=== PATIENT | male | born 1970 | race Asian ===

== ENCOUNTER 2025-10-08 09:35 | Outpatient (AMB) | payer BC, SELFPAY ==
--- OUTSIDE RECORDS SUMMARY | 2024-06-21 10:30 | XMS_ITS ---
Author Organization [facility] [place] Address [address] [facility] [address] [place] [address] Care Team Providers Care Curriculum Supervisor Name Role Phone Migration, Provider Unavailable Unavailable REASON FOR VISIT Follow-up Appt Encounters Encounter Location Date Provider Diagnosis [address] [address] 06/21/2024 Provider Migration Plan Of Treatment No Information Progress Notes * VIKY NAVARRETE:1970 ([age] yo M)Acc No.[id number]:06/21/2024 Progress Notes Patient: Misty Lancaster VIKY Moreno Provider: Esthela Solares :1970 A ge:54 Y S ex:Male Date:06/21/2024 Address:[address] [place], [place] [phone] Subjective: * Chief Complaints: * F ollow-up Appt * Ocular Surgical History: Objective: Vision Examination: * Electronic signature of Prov ider Migration on 10/08/2025 at 11:17 AM EST Sign off status: Pending * Provider: Esthela taylor Migration Date: 0 06/21/2024 Generated for Berny alexander/Steve/eTransmitting on: 1 12/09/2024 11:17 AM EST
--- OUTSIDE RECORDS SUMMARY | 2024-08-30 05:45 | XMS_ITS ---
Author Organization [facility] [place] Address [address] [facility] [address] [place] [address] Care Team Providers Care Chief Pharmacist Name Role Phone Migration, Provider Unavailable Unavailable REASON FOR VISIT Follow-up Appt Encounters Encounter Location Date Provider Diagnosis [address] [address] 08/30/2024 Provider Migration Plan Of Treatment No Information Progress Notes * VIKY NAVARRETE:1970 ([age] yo M)Acc No.[id number]:08/30/2024 Progress Notes Patient: Misty Lancaster VIKY Moreno Provider: Esthela Solares :1970 A ge:54 Y S ex:Male Date:08/30/2024 Address:[address] [place], [place] [id number] Subjective: * Chief Complaints: * F ollow-up Appt * Ocular Surgical History: Objective: Vision Examination: * Electronic signature of Prov ider Migration on 10/08/2025 at 11:17 AM EST Sign off status: Pending * Provider: Esthela taylor Migration Date: 10/30/2023 Generated for Berny alexander/Steve/eTransmitting on: 12/09/2024 11:17 AM EST
--- OUTSIDE RECORDS SUMMARY | 2025-01-07 10:30 | XMS_ITS ---
Author Organization [facility] [place] Address [address] [facility] [address] [place] [address] Care Team Providers Care Pump House Technician Name Role Phone Migration, Provider Unavailable Unavailable REASON FOR VISIT Follow-up Appt Encounters Encounter Location Date Provider Diagnosis [address] [address] 01/07/2025 Provider Migration Plan Of Treatment No Information Progress Notes * VIKY NAVARRETE:1970 ([age] yo M)Acc No.[id number]:01/07/2025 Progress Notes Patient: Misty Lancaster VIKY Moreno Provider: Esthela Solares :1970 A ge:54 Y S ex:Male Date:01/07/2025 Address:[address] [place], [place] [phone] Subjective: * Chief Complaints: * F ollow-up Appt * Ocular Surgical History: Objective: Vision Examination: * Electronic signature of Prov ider Migration on 10/08/2025 at 11:17 AM EST Sign off status: Pending * Provider: Esthela taylor Migration Date: 0 01/07/2025 Generated for Berny alexander/Steve/eTricharsmitting on: 1 12/09/2024 11:17 AM EST
--- OUTSIDE RECORDS SUMMARY | 2025-01-07 10:45 | XMS_ITS ---
Author Organization [facility] [place] Address [address] [facility] [address] [place] [address] Care Team Providers Care Utility Agent Name Role Phone Jose Moody Unavailable [phone] REASON FOR VISIT Follow-up Appt Encounters Encounter Location Date Provider Diagnosis [facility], [address] [address] 01/07/2025 Jose Moody Plan Of Treatment No Information Progress Notes * VIKY NAVARRETE:1970 ([age] yo M)Acc No.[id number]:01/07/2025 Progress Notes Patient: VIKY Loving Provider: Monika SHIN :1970 A ge:54 Y S ex:Male Date:01/07/2025 Address:[address] [place], [place] [phone] Subjective: * Chief Complaints: * F ollow-up Appt * Ocular Surgical History: Objective: Vision Examination: * Electronic signature of Larry Moody PA-C on 10/08/2025 at 11:17 AM EST Sign off status: Pending * Provider: Monika SHIN Date: 0 01/07/2025 Generated for Berny alexander/Steve/Dee Dee on: 1 12/09/2024 11:17 AM EST
--- OUTSIDE RECORDS SUMMARY | 2025-02-22 10:30 | XMS_ITS ---
Author Organization [facility] [place] Address [address] [facility] [address] [place] [address] Care Team Providers Care Block Placer Name Role Phone Jose Moody Unavailable [phone] REASON FOR VISIT Follow-up Appt Encounters Encounter Location Date Provider Diagnosis [address] [address] 02/22/2025 Jose Moody Plan Of Treatment No Information Progress Notes * VIKY NAVARRETE:1970 ([age] yo M)Acc No.[id number]:02/22/2025 Progress Notes Patient: VIKY Loving Provider: Monika SHIN :1970 A ge:55 Y S ex:Male Date:02/22/2025 Address:[address] [place], [place] [phone] Subjective: * Chief Complaints: * F ollow-up Appt * Ocular Surgical History: Objective: Vision Examination: * Electronic signature of Larry Moody PA-C on 10/08/2025 at 11:18 AM EST Sign off status: Pending * Provider: Monika SHIN Date: 0 02/22/2025 Generated for Berny alexander/Steve/Dee Dee on: 1 12/09/2024 11:18 AM EST
--- OUTSIDE RECORDS SUMMARY | 2025-03-01 11:15 | XMS_ITS ---
Author Organization [facility] [place] Address [address] [facility] [address] [place] [address] Care Team Providers Care Human Service Worker Name Role Phone Jose Moody Unavailable [phone] REASON FOR VISIT Follow-up Appt Encounters Encounter Location Date Provider Diagnosis [facility], [address] [address] 03/01/2025 Jose Moody Plan Of Treatment No Information Progress Notes * VIKY NAVARRETE:1970 ([age] yo M)Acc No.[id number]:03/01/2025 Progress Notes Patient: VIKY Loving Provider: Monika SHIN :1970 A ge:55 Y S ex:Male Date:03/01/2025 Address:[address] [place], [place] [phone] Subjective: * Chief Complaints: * F ollow-up Appt * Ocular Surgical History: Objective: Vision Examination: * Electronic signature of Larry Moody PA-C on 10/08/2025 at 11:18 AM EST Sign off status: Pending * Provider: Monika SHIN Date: 0 03/01/2025 Generated for Berny alexander/Steve/Dee Dee on: 1 12/09/2024 11:18 AM EST
--- OUTSIDE RECORDS SUMMARY | 2025-03-11 10:45 | XMS_ITS ---
Author Organization [facility] [place] Address [address] [facility] [address] [place] [address] Care Team Providers Care Vision Teacher Name Role Phone Jose Moody Unavailable [phone] REASON FOR VISIT Follow-up Appt Encounters Encounter Location Date Provider Diagnosis [facility], [address] [address] 03/11/2025 Jose Moody Plan Of Treatment No Information Progress Notes * VIKY NAVARRETE:1970 ([age] yo M)Acc No.[id number]:03/11/2025 Progress Notes Patient: VIKY Loving Provider: Monika SHIN :1970 A ge:55 Y S ex:Male Date:03/11/2025 Address:[address] [place], [place] [phone] Subjective: * Chief Complaints: * F ollow-up Appt * Ocular Surgical History: Objective: Vision Examination: * Electronic signature of Larry Moody PA-C on 10/08/2025 at 11:18 AM EST Sign off status: Pending * Provider: Monika SHIN Date: 0 03/11/2025 Generated for Berny alexander/Steve/Dee Dee on: 1 12/09/2024 11:18 AM EST
--- NOTE | 2025-10-08 09:44 | MHC.PC.OV ---
Vital Signs 10/08/25 09:51 Height 5 ft 7 in Weight 147 lb 8 oz BMI 23.1 BP 120/70 Blood Pressure Location Rt brachial Position Sitting Pulse 73 Pulse Source Pulse Oximeter Temp 98.4 F Temp Source Temporal Artery Scan Pulse Oximetry (%) 97 Oxygen Delivery Method Room Air Intake Visit Reasons: CPE Intake Note: Ivy presents in the office today to establish care. Telegraph Installer Required: No Allergies No Known Allergies Allergy (Unverified 10/08/25 09:46) Tobacco use date assessed: 10/08/25 Dental Screening Dental Screen Date: 10/08/25 Did you have a dental visit in the last 12 months?: Yes Did you have a dental problem in the last 6 months where you did not have access to dental care?: No Was dental information given to patient?: Patient has dentist HPI HPI Comments History of Present Illness Details The patient is a 55 year old male with a past medical history of diabetes, GERD, hyperlipidemia presenting to establish care/cpe. His records not yet received DM-Trulicity 4.5 switched to ozempic 0.25 previous visit, metformin 500mg twice daily, glipizide ER 10mg daily, jardiance. Checks blood glucose fasting 142-low 200s. Follows with eye doctor in [place]. Appt next March GERD-omeprazole which he takes intermittent CV: on simvastatin. Colonoscopy: at 48. [facility]. ROS CONSTITUTIONAL: Denies weight loss, fever and chills. HEENT: Denies changes in vision and hearing. RESPIRATORY: Denies SOB and cough. CV: Denies palpitations and CP GI: Denies abdominal pain, nausea, vomiting and diarrhea. : Denies dysuria and urinary frequency. MSK: Denies new myalgia and joint pain. SKIN: Denies rash and pruritus. NEUROLOGICAL: Denies headache PSYCHIATRIC: Denies recent changes in mood. PHYSICAL EXAM: GENERAL: Alert and oriented x 3. NAD EYES: EOMI. Anicteric. HENT: Moist mucous membranes. No scleral icterus. No cervical lymphadenopathy. LUNGS: Clear to auscultation bilaterally. CARDIOVASCULAR: Regular rate and rhythm. No murmur. No JVD. ABDOMEN: Soft, non-tender +bs EXTREMITIES: No edema. Non-tender. SKIN: No rashes or lesions. Warm. NEUROLOGIC: No focal neurological deficits. CN II-XII grossly intact PSYCHIATRIC: Cooperative. Appropriate mood and affect [facility] Medical History Diabetes Hyperlipemia Family History Mother Hyperlipemia Diabetes Maternal Grandmother Lung cancer Maternal Grandfather Lung cancer Social History Housing: House Alcohol intake: current Patient Tobacco Use Status: Never used Tobacco e-Cigarette/Vaping Use: Never Used Second Hand Smoke Exposure: No service: No Current occupational status: employed Current occupational exposures/hazards: No Cognitive needs: No Hearing needs: No Vision needs: No Questionnaire PHQ-9 Over the last 2 weeks, how often have you been bothered by any of the following problems? 1. Little interest or pleasure in doing things: not at all 2. Feeling down, depressed, or hopeless: not at all 3. Trouble falling or staying asleep, or sleeping too much: not at all 4. Feeling tired or having little energy: not at all 5. Poor appetite or overeating: not at all 6. Feeling bad about yourself - or that you are a failure or have let yourself or your family down: not at all 7. Trouble concentrating on things, such as reading the newspaper or watching television: not at all 8. Moving or speaking so slowly that other people could have noticed. Or the opposite - being so fidgety or restless that you have been moving around a lot more than usual: not at all 9. Thoughts that you would be better off or of hurting yourself in some way: not at all Total score: 0 Depression Screening Interpretation: Negative Depression Screening Done: Yes 60394 - PHQ-9 Billing: Yes Source: Developed by Drs. James Antunez, Madelyn Chamberlain, Dandre Reyes and colleagues, with an educational jimmy from [employer]. Thrive Questionnaire Date Thrive assessed: 10/08/25 I am a: Patient What is your living situation today?: I have a steady place to live Within the past 12 months, did the food you bought not last and you didn't have the money to get more?: Never true Within the past 12 months, did you worry whether your food would run out before you got money to buy more?: Never true Do you have trouble paying for medicines?: No Do you have trouble getting transportation to medical appointments?: No Do you have trouble paying your heating and electricity bill?: No Do you have trouble taking care of your child, family member or friend?: No Do you have trouble with day-to-day activities such as bathing, preparing meals, shopping, managing finances, etc.?: No Are you currently unemployed and looking for a job?: No Are you interested in more education?: I choose not to answer this question Please select the resources that you would like help with: None Currently or been in a relationship where the following occur: I choose not to answer THRIVE Score: 0 AUDIT C Alcohol Use Questionnaire (AUDIT-C) 1. How often do you have a drink containing alcohol?: Monthly or less 2. How many drinks containing alcohol do you have on a typical day when you are drinking?: 1 or 2 3. How often do you have six or more drinks on one occasion?: Monthly Total Score: 3 MAHNAZ-7 AMB Questionnaire MAHNAZ-7 Date MAHNAZ - 7 assessed: 10/08/25 Feeling nervous, anxious, or on edge: 0 = Not at all Not being able to stop or control worryin = Not at all Worrying too much about different things: 0 = Not at all Trouble relaxin = Not at all Being so restless that it is hard to sit still: 0 = Not at all Becoming easily annoyed or irritable: 0 = Not at all Feeling afraid as if something awful might happen: 0 = Not at all Total MAHNAZ-7 score (0-4 normal; 5-9 mild; 10-14 moderate; 15-21 severe): 0 Source: Developed by Drs. James Antunez, Madelyn Chamberlain, Dandre Reyes and colleagues, with an educational jimmy from [employer]. MAHNAZ-7 Assessment Billing MAHNAZ-7 Assessment Tool: MAHNAZ-7 Assessment 68122 Physical exam (Primary Care) Vital Signs: Last Vital Signs Temp 98.4 F 10/08/25 09:51 Pulse 73 10/08/25 09:51 BP 120/70 10/08/25 09:51 Pulse Ox 97 10/08/25 09:51 Oxygen Delivery Method Room Air 10/08/25 09:51 BMI result Body Mass Index 23.1 Tobacco/Smoking Status: Tobacco use Status Tobacco use date assessed 10/08/25 10/08/25 09:53 Patient Tobacco Use Status Never used Tobacco 10/08/25 09:53 e-Cigarette/Vaping Use Never Used 10/08/25 09:53 PHQ-9: PHQ-9 Score PHQ-9: Total score 0 10/08/25 09:46 Depression Screening Interpretation: Negative Thrive Assessment: Date of Thrive Assessment Date Thrive assessed 10/08/25 10/08/25 09:46 Currently or been in a relationship where the following occur: I choose not to answer Coding Level of Care Code New Pt Prev Care 40-64y(24547) Diagnoses Type 2 diabetes mellitus with hyperglycemia, without long-term current use of insulin E11.65 Diabetes mellitus type: type 2 Diabetes mellitus penitentiary insulin use: without adjunct faculty for medical terminology use Diabetes mellitus complication status: with hyperglycemia Gastroesophageal reflux disease, unspecified whether esophagitis present K21.9 Esophagitis presence: esophagitis presence not specified Hyperlipidemia, unspecified hyperlipidemia type E78.5 Hyperlipidemia type: unspecified Additional Codes MAHNAZ-7 Assessment Billing - MAHNAZ-7 Assessment Tool: MAHNAZ-7 Assessment 81237 ([id number]) PHQ-9 - 68732 - PHQ-9 Billing: Yes ([id number]) Assessment & Plan Assessment & Plan (1) Diabetes: Code(s): E11.9 - Type 2 diabetes mellitus without complications Category: Medical Qualifiers: Diabetes mellitus type: type 2 Diabetes mellitus adjunct faculty for medical terminology insulin use: without penitentiary use Diabetes mellitus complication status: with hyperglycemia Qualified Code(s): E11.65 - Type 2 diabetes mellitus with hyperglycemia (2) GERD (gastroesophageal reflux disease): Code(s): K21.9 - Gastro-esophageal reflux disease without esophagitis Category: Medical Qualifiers: Esophagitis presence: esophagitis presence not specified Qualified Code(s): K21.9 - Gastro-esophageal reflux disease without esophagitis (3) Hyperlipemia: Code(s): E78.5 - Hyperlipidemia, unspecified Category: Medical Qualifiers: Hyperlipidemia type: unspecified Qualified Code(s): E78.5 - Hyperlipidemia, unspecified Plan 55 year old male presenting to [facility] care/cpe Past medical, surgical, social reviewed Preventive measures for age discussed Diabetes, likely uncontrolled. due for A1C. Eye exam up to date Labs ordered. Return in 3 months or sooner as needed Orders: Orders Complete Blood Count Auto Diff Today E11.9 - Type 2 diabetes mellitus without complications, E78.5 - Hyperlipidemia, unspecified, K21.9 - Gastro-esophageal reflux disease without esophagitis, Z13.0 - Encounter for screening for diseases of the blood and blood-forming organs and certain disorders involving the immune mechanism Microalbumin, Random (w Creat) Today E11.9 - Type 2 diabetes mellitus without complications, E78.5 - Hyperlipidemia, unspecified, K21.9 - Gastro-esophageal reflux disease without esophagitis, Z13.0 - Encounter for screening for diseases of the blood and blood-forming organs and certain disorders involving the immune mechanism Comprehensive Met. Panel Today E11.9 - Type 2 diabetes mellitus without complications, E78.5 - Hyperlipidemia, unspecified, K21.9 - Gastro-esophageal reflux disease without esophagitis, Z13.0 - Encounter for screening for diseases of the blood and blood-forming organs and certain disorders involving the immune mechanism Lipid Panel Today E11.9 - Type 2 diabetes mellitus without complications, E78.5 - Hyperlipidemia, unspecified, K21.9 - Gastro-esophageal reflux disease without esophagitis, Z13.0 - Encounter for screening for diseases of the blood and blood-forming organs and certain disorders involving the immune mechanism TSH reflex Free T4 Today E11.9 - Type 2 diabetes mellitus without complications, E78.5 - Hyperlipidemia, unspecified, K21.9 - Gastro-esophageal reflux disease without esophagitis, Z13.0 - Encounter for screening for diseases of the blood and blood-forming organs and certain disorders involving the immune mechanism Hemoglobin A1c Today E11.9 - Type 2 diabetes mellitus without complications, E78.5 - Hyperlipidemia, unspecified, K21.9 - Gastro-esophageal reflux disease without esophagitis, Z13.0 - Encounter for screening for diseases of the blood and blood-forming organs and certain disorders involving the immune mechanism Prostate Specific Antigen Today Z12.5 - Encounter for screening for malignant neoplasm of prostate Medications: New metformin 500 mg PO BID 180 tabs 3RF
[2025-10-08 09:51] VITALS: BP 120/70; PULSE 73; TEMP 36.9; O2SAT 97; BMI 23.1
--- OUTSIDE RECORDS SUMMARY | 2025-10-08 11:16 | XMS_ITS | Clinical Summary ---
Author Organization [address] [facility] Address [address] [place] [address] Phone Care Team Providers Care Finance Specialist Name Role Phone Jose Moody Primary Care Provider [phone] Social History Tobacco Use Types Packs/Day Years Used Date Smoking Tobacco: Never Assessed Sex and Gender Information Value Date Recorded Sex Assigned at Not on file Legal Sex Male 8:40 AM EST Gender Identity Not on file Sexual Orientation Not on file Plan of Treatment Health Maintenance Due Date Last Done Comments Colorectal Cancer Screening: Colonoscopy 1970 DTaP,Tdap,and Td Vaccines (1 - Tdap) 02/22/1987 Hepatitis B Vaccines (1 of 3 - 19+ 3-dose series) 02/22/1987 Pneumococcal Vaccine: 50+ Years (1 of 2 - PCV) 02/22/1987 Zoster Vaccines (1 of 2) 02/22/2018 HIV Screening 09/26/2022 Hepatitis C Screening 09/26/2022 Social Influencers of Health Screening 09/26/2022 Depression Screening 10/24/2024 COVID-19 Vaccine (1 - 2024-2 6 season) 2025 Influenza Vaccine (#1) 2025 Cholesterol Screening (Lipid Panel) 06/14/2030 06/14/2025, 03/11/2025 RSV Immunization Adult Patients (1 - 1-dose 75+ series) 02/22/2043 HIB Vaccines Aged Out No longer eligi ble based on patient's age to complete this topic HPV Vaccines Aged Out No longer eligi ble based on patient's age to complete this topic Hepatitis A Vaccines Aged Out No long er eligible based on patient's age to complete this topic IPV Vaccines Aged Out No longer eligi ble based on patient's age to complete this topic MMR Vaccines Aged Out No longer eligi ble based on patient's age to complete this topic Meningococcal ACWY Vaccine Aged Out N o longer eligible based on patient's age to complete this topic Meningococcal B Vaccine Aged Out No l onger eligible based on patient's age to complete this topic RSV Immunization Patients Under 20 months Aged Out No longer eligible b ased on patient's age to complete this topic Varicella Vaccines Aged Out No longer eligible based on patient's age to complete this topic Procedures Procedure Name Priority Date/Time Associated Diagnosis Comments LIPID PANEL WITH REFLEX TO DIRECT LDL Routine 06/14/2025 9:48 AM EDT Encounter for general adult medical examination with abnormal findings Diabetes mellitus ([facility] V24, [facility] V28) Hyperlipemia Special screening for malignant neoplasm of prostate from Last 3 Months or Most Recently Relevant to Health Maintenance Results * (ABNORMAL) Lipid panel with reflex to direct LDL (06/14/2025 9:48 AM EDT) Cholesterol 157 0 - 200 mg/dL LAB CHEMISTRY [facility] Triglycerides 170(H) 0 - 150 mg/dL LAB CHEMISTRY METHOD 06/14/2025 12:30 PM [facility] HDL 61 >=40 mg/dL LAB CHEMISTRY METHOD 06/14/2025 12:30 PM [facility] LDL Calculated 62 0 - 100 mg/dL LAB CHEMISTRY METHOD 06/14/2025 12:30 PM [facility] Comment:Estimated LDL Calcul ated using equation: Total cholesterol - HDL cholesterol - (Triglycerides/5) VLDL Cholesterol Hieu 34 mg/dL LAB CHEMISTRY METHOD 06/14/2025 12:30 PM [facility] Non HDL Chol. (LDL+VLDL) 96 <145 mg/dL LAB CHEMISTRY METHOD 06/14/2025 12:30 PM [facility] Chol/HDL Ratio 2.6 0.0 - 4.4 LAB CHEMISTRY METHOD 06/14/2025 12:30 PM [facility] Blood Venous blood specimen / Unknown Venipuncture / Unknown 06/14/2025 9:48 AM EDT 06/14/2025 11:25 AM EDT us Kandace Soriano [facility] LAB BLOOD ORDERABLES Final Res ult ELMA GLASGOW MD ([facility] [address] [place] [address], from Last 3 Months or Most Recently Relevant to Health Maintenance Insurance [facility] Care Teams Finance Specialist Relationship Specialty Start Date End Date Jose Moody PA [address] [address] PCP - General Primary Care 06/14/25
--- OUTSIDE RECORDS SUMMARY | 2025-10-08 11:16 | XMS_ITS | Patient Health Record ---
Author Organization [facility], [place] Address [address] [place] [address] Care Team Providers Care Healthcare Economics Consultant Name Role Phone Jose Moody Unavailable [phone] Migration, Provider Unavailable Unavailable Kandace Soriano Unavailable [phone] Allergies No Known Allergies Reason For Referral No Information Medications Medication SIG (Take, Route, Frequency, Duration) Notes Start Date End Date Status Omeprazole 20 MG Capsule Delayed Release 1 capsule 1/2 to 1 hour before morning meal Orally Once a day Active FreeStyle Mckenzie Lite w/Device Kit as directed; Duration: 30 days 06/14/2025 Active FreeStyle Lancets - Miscellaneous as directed; Duration: 90 days freestyle lancets 06/14/2025 Active glipiZIDE ER 10 MG Tablet Extended Release 24 Hour 1 tablet with breakfast Orally Once a day; Duration: 90 days Active metFORMIN HCl 500 MG Tablet 2 tablet with a meal Orally twice a day; Duration: 90 days Active Simvastatin 40 MG Tablet 1 tablet in the evening Orally Once a day; Duration: 90 days Active Jardiance 25 MG Tablet 1 tablet Orally Once a day; Duration: 90 days Active Trulicity 4.5 MG/0.5ML Solution Auto-injector as directed Subcutaneous Active Blood Glucose Test Strips 333 - Strip as directed In Vitro daily; Duration: 90 days freestyle 06/14/2025 Active Social History Section Notes: Former smoker- 6yrs secial ocassions- alcohol caffeine- 1 cup/day Former smoker- 6yrs secial ocassions- alcohol caffeine- 1 cup/day Vital Signs Heart Rate 68 /min 07/22/2025 height- 5ft 7in . Temperature 97.4 degrees Fahrenheit 06/19/2025 Respiratory Rate 17 /min 07/22/2025 height- 5ft 7in. Oximetry 98 % 07/22/2025 height- 5ft 7in . Blood pressure diastolic 85 mm Hg 07/22/2025 hei ght- 5ft 7in. Weight-kg 66.23 kg 07/22/2025 height- 5ft 7in . Blood pressure systolic 125 mm Hg 07/22/2025 heig ht- 5ft 7in. Weight 146 lbs 07/22/2025 height- 5ft 7in . Encounters Encounter Location Date Provider Diagnosis [facility], [address] [address] 01/07/2025 Jose Moody [facility], [address] [address] 01/07/2025 Provider Migration [facility], [address] [address] 02/22/2025 Jose Moody [facility], [address] [address] 03/01/2025 Jose Moody [facility], [address] [address] 03/11/2025 Jose Moody [facility], [address] [address] 06/14/2025 Kandace Soriano Elevated hemoglobin A1c R73.09 [facility], [address] [address] 06/19/2025 Kandace Soriano Elevated hemoglobin A1c R73.09 [facility], [address] [address] 07/22/2025 Kandace Soriano Elevated glucose R73.09 Assessments Encounter Date Diagnosis (ICD Code) Assessment Notes Treatment Notes Treatment Clinical Notes Section Notes 06/14/2025 Elevated hemoglobin A1c (ICD-10 - R73.09) 06/19/2025 Elevated hemoglobin A1c (ICD-10 - R73.09) Patient into office for review of current labs. A1C is 7.9 so i increased his metformin to 1000mg bid and he will record am and pm glucose levels and we will review them in two weeks 07/22/2025 Elevated glucose (ICD-10 - R73.09) Patient into ther office to review home glucose monitoring. His glucose readings are still ranging from 160's to 215's. On max dose of jardiance and metformin,Memo licity . Will try ozempic for two months and will recheck his A1c at the end of August. Plan Of Treatment No Information Insurance Providers Payer Name Payer Address Payer Phone Subscriber Number Group Number Insured Name Patient Relationship to Insured Coverage Start Date Coverage End Date [employer] [address] [place] [address] [phone] [id number] [facility] Self - patient is the insured Medical (General) History Medical History History ICD Code Diabetic Surgical History Surgery Date(Month/Year) patient indicates no past surgeries
--- OUTSIDE RECORDS SUMMARY | 2025-10-08 11:19 | XMS_ITS | Encounter Summary ---
[facility] Address [address] [place] [address] Care Team Providers Care Rn Orthopedic Name Role Phone Jose Moody Primary Care Provider [phone] Encounter Details Date Type Department Care Team (Latest Contact Info) Description 08/30/2024 Lab Requisition [facility] - Main Lab [address] [facility] [place] [address] Sumanth Brown MD [address] [address] Type 2 diabetes mellitus without complications (CMS/HCC V24, CMS/HCC V28) Social History Tobacco Use Types Packs/Day Years Used Date Smoking Tobacco: Never Assessed Sex and Gender Information Value Date Recorded Sex Assigned at Not on file Legal Sex Male 8:40 AM EST Gender Identity Not on file Sexual Orientation Not on file documented as of this encounter Plan of Treatment Not on file documented as of this encounter Procedures Procedure Name Priority Date/Time Associated Diagnosis Comments HEMOGLOBIN A1C Routine 08/30/2024 12:00 AM EST Type 2 diabetes mellitus without complications (CMS/[facility]) documented in this encounter Results * (ABNORMAL) Hemoglobin A1c (08/30/2024 12:00 AM EST) Hemoglobin A1C 9.0(H) <6.5 % LAB CHEMISTRY METHOD 08/30/2024 10:11 PM EST [facility] Mean Bld Glu Estim. 212 mg/dL LAB CHEMISTRY METHOD 08/30/2024 10:11 PM EST [facility] Blood Venous blood specimen / Unknown 08/30/2024 08/30/2024 6:13 PM EST us Sumanth Brown MD LAB BLOOD ORDERABLES Final Res ult [facility] [address] [place] [address], documented in this encounter Visit Diagnoses Diagnosis Type 2 diabetes mellitus without complications (CMS/HCC V24, CMS/HCC V28) documented in this encounter Care Teams Rn Orthopedic Relationship Specialty Start Date End Date Jose Moody PA [address] [address] PCP - General Primary Care 06/14/25 documented as of this encounter
== END 2025-10-08 10:26 | disposition home or self-care (01) ==
LOC: HO.HMCFM 09:35
PROVIDERS: PCP Internal Medicine; Visit Provider Internal Medicine
DX: Z00.00 Encounter for general adult medical examination without abnormal findings (principal); E11.65 Type 2 diabetes mellitus with hyperglycemia; K21.9 Gastro-esophageal reflux disease without esophagitis; E78.5 Hyperlipidemia, unspecified

== ENCOUNTER 2025-10-08 09:35 | Outpatient (REF) | payer BC, SELFPAY ==
--- OUTSIDE RECORDS SUMMARY | 2025-10-08 13:20 | XMS_ITS | Data Portability ---
Author Organization [place] - [facility], [facility] Address [address] [address] Care Team Providers Care Air Carrier Inspector Name Role Phone NIRMALA APOLLOMIRA Primary Care Provider [phone] Assessment Encounter Date Assessment Date Assessment LastModified by Organization Details LastModified Time 06/20/2024 06/20/2024 54-year-old male presents for follow-up of asymmetric hearing loss. On exam, bilateral tympanic membranes are intact with well aerated middle ear spaces. Audiometric testing is essentially stable and demonstrated normal sloping to moderately severe sensorineural hearing loss on the right and normal sloping to moderate sensorineural hearing loss on the left. As auditory thresholds are essentially stable, we will continue to observe and plan for yearly audiometric testing. He will follow-up sooner with any changes in his hearing. May consider imaging for worsening asymmetric hearing loss. Patient is a candidate for amplification but is not interested at this time. apple Not available 06/20/2024 14:39:16 06/19/2025 06/19/2025 55-year-old male presents for follow-up of asymmetric hearing loss. On exam, bilateral tympanic membranes are intact with well aerated middle ear spaces. Audiometric testing is essentially stable and demonstrated normal sloping to moderately severe sensorineural hearing loss on the right and normal sloping to moderate sensorineural hearing loss on the left. As auditory thresholds are essentially stable, we will continue to observe and plan for yearly audiometric testing. He will follow-up sooner with any changes in his hearing. May consider imaging for worsening asymmetric hearing loss. Patient is a candidate for amplification but is not interested at this time. Masking techniques recommended for tinnitus. [email or web address] Not available 06/19/2025 16:26:36 Plan of Treatment Reminders Order Date Submit Date Provider Last Modified By Organization Details Last Modified Time Details Appointments Hearing Test 2025 03:00P M Hearing Test Not available Not available Not available Establish ed 15 2025 03:30P M EREN CAAL PA-C Not available Not available Not available Lab None recorded. Referral None recorded. Procedures None recorded. Surgeries None recorded. Imaging None recorded. Medication Orders None recorded. Patient TargetsNo targets recorded. Patient InstructionsNo instructions recorded. Reason for Referral None Reported. Results Created Date Observation Date Name Description Value Unit Range Abnormal Flag Note LastModifiedBy Organization Detail LastModifiedTime 06/13/20 24 12/21/2023 imagi ng/di agnos tic resul t No observ ation record ed. [email or web address] Not Available 19:21:19 06/13/20 24 12/21/2023 imagi ng/di agnos tic resul t No observ ation record ed. [email or web address] Not Available 19:21:23 06/13/20 24 07/05/2023 imagi ng/di agnos tic resul t No observ ation record ed. [email or web address] Not Available 19:21:31 06/20/20 24 audio gram No observ ation record ed. [email or web address] Not Available 05/25 15:00:26 06/20/20 25 audio gram No observ ation record ed. [email or web address] Not Available 2024 12:17:03 Result Notes None recorded. Problems Name Problem SNOMED Code Status Onset Date Resolution Date Notes Provider Name and Address Organization Details Recorded Time Bilateral tinnitus 72605667715 02 Active 2023 Tinnitus, bilateral ; Note: Date Diagnosed : 12/21/2023 10:37 AM (H93.13) Not Available [facility] 03:30:20 Sensorine ural hearing loss of bilateral ears 398042652 Active 2023 Sensorine ural hearing loss, bilateral ; Note: Date Diagnosed : 12/21/2023 11:02 AM (H90.3) Not Available [facility] 03:30:20 Problem Notes None recorded. Procedures Surgical History Date Name Laterality Status Provider Name and Address Organization Details Recorded Time 06/19/20 25 Air & Speech Audio with Tymps - 24375, 93391 & 95738 completed JUAN DIEGO MINER, AUD [address] [facility], [place], [address], [facility] - [facility] 06/19/2025 15:47:02 06/20/20 24 Air only Audio - 01454 completed HONEY CEDENO, AUD [address] [facility] [address], [place], [address], [facility] - [facility] 06/20/2024 14:00:24 06/20/20 24 Tympanometry - 08396 completed HONEYSOPHIA CEDENO, AUD [address] [facility] [address], [place], [address], [facility] 06/20/2024 14:00:31 Imaging Results None recorded. Procedure Notes None recorded. Medical Equipment None Reported. Medications Name Sig Start Date Stop Date Status Note LastModified by Organization Details LastModified Time metformin 500 mg tablet TAKE 2 TABLETS BY MOUTH TWICE DAILY WITH MEALS AND WITH BREAKFAST AND DINNER active Not Available Not Available N ot Available glipizide ER 10 mg tablet, extended release 24 hr TAKE 1 TABLET BY MOUTH DAILY WITH BREAKFAST active Not Available Not Available No t Available FreeStyle Lancets 28 gauge USE DIRECTED EVERY DAY TO THREE TIMES DAILY active Not Available Not Available No t Available simvastatin 40 mg tablet TAKE 1 TABLET BY MOUTH EVERY DAY active Not Available Not Available No t Available omeprazole 20 mg capsule,delay ed release TAKE 1 CAPSULE BY MOUTH EVERY DAY NEEDED active Not Available Not Available No t Available FreeStyle Lite Meter kit USE DIRECTED active Not Available Not Available No t Available FreeStyle Lite Strips USE DIRECTED DAILY TO THREE TIMES DAILY DIRECTED active Not Available Not Available No t Available Jardiance 25 mg tablet TAKE 1 TABLET BY MOUTH DAILY active Not Available Not Available No t Available Trulicity 4.5 mg/0.5 mL subcutaneous pen injector INJECT 4.5 MG UNDER THE SKIN ONCE A WEEK active Not Available Not Available No t Available Vitals Date Recorded Body height Body mass index (BMI) Body weight Provider Name and Address Organization Details Last Updated DateTime 06/20/2024 167.64 cm 23.1 kg/m2 06235.71 g Meme Reich [place] - [facility] 06/20/2024 14:13:28 Social History None recorded. Functional Status None recorded. Mental Status None recorded. Family History Nothing Reported. Medical History No medical history recorded. Past Encounters Encounter ID Performer Location Encounter Start Date Encounter Closed Date Diagnosis/Indication Diagnosis SNOMED-CT Code Diagnosis ICD10 Code Diagnosis IMO Codes Diagnosis Note [id number] VIOLA ANNA PA-C [facility] [address] [address] 06/20/2024 13:40:27 06/20/2024 14:21:57 Bilateral tinnitus 4594294988 102 H93.13 Right Ear:Normal hearing through 2K Hz sloping to a moderately -severe SNHL.Type A tympanogra m.Left Ear:Normal hearing through 2K Hz sloping to a moderate SNHL.Type A tympanogra m. Sensorineu ral hearing loss of bilateral ears 562114942 H90.3 [id number] VIOLA ANNA PA-C [facility] [address] [address] 06/19/2025 15:03:17 06/20/2025 10:57:43 Bilateral tinnitus 5878574229 102 H93.13 Sensorineu ral hearing loss of bilateral ears 218655833 H90.3 Audiologic al evaluation results: Right ear: Normal through 2 kHz sloping to moderately severe sensorineu ral hearing loss with excellent word recognitio n. Left ear: Normal through 2 kHz sloping to a moderate sensorineu ral hearing loss with excellent word recognitio n. Tympanomet ry: Right Ear:Type A Left Ear:Type A Health Concerns Section Related Observation LastModified by Organization Detai ls LastModified Time None Recorded Concern Status LastModified by Organization Details LastModified Time None Recorded Advance Directives Directive None Recorded Payers Insurance Date Sequence Insurance Name Policy Number Policy Potter Covered Member ID Potter Member ID Guarantor Name 06/19/2025 1 [employer] (PPO) [id number] [facility] [id number] [facility] Notes Date Note Type Note Provider Name and Address Organization Details Recorded Time 06/20/2024 text/html ROS as noted in the [facility] 54-year-old male presents for follow-up of asymmetric hearing loss. Patient elected to proceed with observation at his last visit in November. Continues to have bilateral tinnitus that is slightly improved since last visit. Denies otalgia, otorrhea, vertigo, and changes in his hearing. VIOLA ANNA PA-C [address], [address], [facility] 06/20/2024 14:39:45 06/19/2025 text/html ROS as noted in the [facility] 55-year-old male presents for follow-up of asymmetric hearing loss. Patient elected to proceed with observation. Continues to have bilateral tinnitus that is intermittent. Denies otalgia, otorrhea, vertigo, and changes in his hearing. SHELBY YAN MD [address] [place] [address], [phone], [facility] 06/19/2025 16:53:21
[2025-10-08 15:59] LABS: MANUAL DIFF FLAG NO
[2025-10-08 16:14] LABS: Hematocrit 44.2 % (42.0-52.0); Hemoglobin 14.7 g/dl (14.0-18.0); Imm Gran Abs Auto 0.01 X10*3/uL (0.00-0.03); Imm Gran Pct Auto 0.2 % (0.0-0.4); Lymphocytes Absolute Auto 1.0 X10*3/uL (1.2-4.9); Mean Corpuscular HGB Conc 33.3 g/dl (31.0-36.0); Mean Corpuscular Hemoglobin 30.2 pg (27.0-33.0); Mean Corpuscular Volume 90.9 fL (80.0-98.0); NRBC Abs Auto 0.000 X10*3/uL (0.0-0.012); NRBC Pct Auto 0.0 /100WBC (0.0-0.2); Platelet Count 195 X10*3/uL (160-400); Red Blood Count 4.86 X10*6/uL (4.60-5.80); White Blood Count 4.1 X10*3/uL (4.8-10.8)
[2025-10-08 16:30] LABS: Microalbum/Creatinine Ratio Ur 36.9 ug/mg cr (<30)
[2025-10-08 16:48] LABS: Alanine Aminotransferase 32 U/L (0-40); Albumin Level 4.4 g/dL (3.5-5.0); Alkaline Phosphatase 94 U/L (39-117); Anion Gap 12 (12-20); Aspartate Amino Transferase 33 U/L (5-37); Blood Urea Nitrogen 20 mg/dL (9-16); Calcium 8.9 mg/dL (8.4-10.2); Carbon Dioxide 25 mmol/L (22-29); Chloride 106 mmol/L (96-108); Cholesterol 176 mg/dL (<200); Estimated Glomerular Filt Rate > 60; HDL Cholesterol 56 mg/dL (>40); Potassium 4.4 mmol/L (3.3-5.1); Sodium 139 mmol/L (135-145); Total Protein 6.8 g/dL (6.5-8.0); Triglycerides 222 mg/dL (<150)
[2025-10-08 17:00] LABS: Prostate Specific Antigen 0.36 ng/mL (<0.05-4.0)
== END 2025-10-08 09:36 | disposition home or self-care (01) ==
LOC: HO.WFDLDS 09:35
PROVIDERS: PCP Internal Medicine; Visit Provider Internal Medicine
DX: Z13.0 Encounter for screening for diseases of the blood and blood-forming organs and certain disorders involving the immune mechanism (principal); Z12.5 Encounter for screening for malignant neoplasm of prostate; K21.9 Gastro-esophageal reflux disease without esophagitis; E78.5 Hyperlipidemia, unspecified; E11.65 Type 2 diabetes mellitus with hyperglycemia; Z79.84 Long term (current) use of oral hypoglycemic drugs
CPT/HCPCS: 36415; 80053; 80061; 82043; 82570; 83036; 84153; 84443; 85025; 96127